=== PATIENT | female | born 1990 | race African-American/Black ===

== ENCOUNTER 2017-02-24 18:47 | Emergency (ER) | payer OTHER ==
[~2017-02-24] VITALS: Ht 160 cm; Wt 81.8 kg
[~2017-02-24 18:47] MED LIST: ESCITALOPRAM OX10 MG PO; IBUPROFEN800 MG PO; LORAZEPAM0.5 MG PO; OXYCODONE-APAP1 EACH PO; TYLENOL EXTRA500 MG PO; TYLENOL REGULA325 MG PO; TYLENOL WITH C1 EACH PO; ZOFRAN4 MG PO
[2017-02-24 19:37] LABS: HEMATOCRIT 34.5 % (36.0-46.0); MCH 27.9 PG (29.0-34.0); MCV 84.6 FL (83-99); MEAN PLAT.VOLUME 9.5 uM^3 (9.5-12.4); PLATELET COUNT 203 K/uL (156-360); RBC DIS.WIDTH-CV 12.4 % (11.8-14.6); RBC DIS.WIDTH-SD 37.8 % (39-53); RED BLOOD COUNT 4.08 M/uL (3.80-5.20); WHITE BLOOD COUNT 4.5 K/uL (4.1-10.2)
[2017-02-24 19:45] LABS: CHLORIDE 104 mEq/L (99-109); SODIUM 140 mEq/L (136-147)
[2017-02-24 19:47] LABS: GLUCOSE 88 mg/dL (70-99)
[2017-02-24 19:48] LABS: ANION GAP 10 MEQ/L (2-14)
[2017-02-24 19:51] LABS: GFR ESTIMATE (CALCULATED) > 59 mL/min/
[2017-02-24 19:52] LABS: UREA NITROGEN (BUN) 9 mg/dL (9-23)
[2017-02-24 19:59] LABS: QUANTITATIVE HCG < 4.0 MIU/ML
[2017-02-24] MEDS ORDERED: POTASSIUM CHLO20 ME2 PO (20:57)
[2017-02-24] MEDS ORDERED: REGLAN5 MG PO (20:57)
[2017-02-24 21:13] VITALS: BP 110/75
== END 2017-02-24 21:15 | disposition home or self-care (01) ==
LOC: EME 18:47
PROVIDERS: Emergency Medicine
DX: G43.909 Migraine, unspecified, not intractable, without status migrainosus (principal); E87.6 Hypokalemia; K21.9 Gastro-esophageal reflux disease without esophagitis; M06.9 Rheumatoid arthritis, unspecified
CPT/HCPCS: 80048; 84702; 85027; 99281; 99284; J2765